=== PATIENT | female | born 1960 | race Two or more races ===

== ENCOUNTER 2021-10-14 09:40 | Day surgery (SDC) | payer OTHER ==
[~2021-10-14 09:40] MED LIST: ALTACE5 MG PO; LEVOXYL25 MCG PO
== END 2021-10-14 19:35 | disposition home or self-care (01) ==
LOC: CIR.AMB 09:40
PROVIDERS: ATTEND Specialist
DX: N84.0 Polyp of corpus uteri (principal); E03.9 Hypothyroidism, unspecified; I10 Essential (primary) hypertension